=== PATIENT | male | born 2000 | race Caucasian/White ===

== ENCOUNTER 2021-03-06 06:26 | Inpatient (IN) | payer OTHER ==
[~2021-03-06] VITALS: Ht 190.5 cm; Wt 81.6 kg
[2021-03-06] VITALS (7 sets, daily range): BP systolic 105–135; BP diastolic 51–66
[2021-03-06 07:28] LABS: HEMOGLOBIN 15.5 gm/dL (14.0-18.0); MCH 30.4 pg (26.0-34.0); MCHC 34.4 g/dL (28.0-37.0); MCV 88.5 fL (80.0-100.0); PLATELET COUNT 215 thou/uL (150-400); RBC 5.08 mil/uL (4.50-6.00); RDW 12.3 % (10.5-14.5)
[2021-03-06 07:37] LABS: CALCIUM 9.4 mg/dL (8.5-10.1); POTASSIUM 3.3 mmol/L (3.5-5.1)
[2021-03-06 07:43] LABS: ALBUMIN 4.3 g/dL (3.4-5.0); DIRECT BILIRUBIN 0.3 mg/dL (<0.1-0.2); TOTAL BILIRUBIN 2.1 mg/dL (0.2-1.0); TOTAL PROTEIN 7.5 g/dL (6.4-8.2)
[2021-03-06 09:55] LABS: ABSOLUTE NEUTROPHILS 17.2 thou/uL (1.4-8.2); PLATELET ESTIMATE NORMAL
--- NOTE | 2021-03-06 19:12 | NUR ---
PT UP FROM SX. PT A&OX4. STATES HE FEELS A LOT BETTER THAN PRIOR TO SURGERY. PT 3 LAP SITES WITH DERMABOND AND STERI STRIPS ARE INTACT WITTH DRIED DRAINAGE. IV ABT GIVEN ORDERED. PT TOLERATED REGULAR DIET AND VOIDING PER TOILET. UP WITH SBA.
--- NOTE | 2021-03-07 06:03 | NUR ---
Pt. rested quietly during the night when checked on during frequent rounds. He c/o abdominal pain and po pain med given (see emar) with some relief noted. NO c/o nausea or vomiting. Lapsites to abdomen are dry and intact.
[2021-03-07 07:48] VITALS: BP 106/59
[2021-03-07 12:51] VITALS: BP 106/59
--- NOTE | 2021-03-07 13:22 | NUR ---
PT ALERT AND ORIENTED TIMES FOUR. VSS. PT DENIES PAIN/SOA AT THIS TIME. PT TOLERATES MEALS. PLANS FOR DISCHARGE TODAY. WILL CONTINUE TO MONITOR.
[2021-03-07] MEDS ORDERED: NORCO5 PO (14:51)
--- NOTE | 2021-03-07 16:06 | PATH ---
[facility] [place] [address] [address] PATHOLOGY RPT PROCEDURE Name: SOLISJACLYN Room #: 459-P DIS IN M.R.#: [id number] Admission: 03/06/21 Date of : 00 Discharge: 03/07/21 Report #: [id number] Path Case #: [id number] [facility] Accession Number: [id number] . 01 Material submitted: . appendix - APPENDIX . 01 Clinical history: . ACUTE APPENDICITIS . 02 Diagnosis: Appendix, appendectomy: - Acute appendicitis with serositis. (ANK/db; 03/07/2021) LBQ 03/07/2021 1011 Local . 02 Electronically signed: . Lesli Fontenot MD, Pathologist NPI- [id number] . 01 Gross description: . Fixative: Formalin Labeled: Appendix Appendix length: 8.7 cm Appendix diameter: Up to 0.8 cm Mesoappendix: Up to 1.1 cm Proximal margin: Stapled Serosa: Light barney-pink and roughened Cut surface: Dilated lumen Luminal diameter: Up to 0.9 cm Perforation: None identified Lesions/abnormalities: None identified A1 Proximal margin (inked black) and distal tip, bisected A2 Mid appendix ([facility]; 03/06/2021) [facility] 03/06/2021 1540 Local . 02 Pathologist provided ICD-10: K35.80 . 02 CPT . 585978 Specimen Comment: A courtesy copy of this report has been sent to [phone] Specimen Comment: Report sent to Performed at: [address], [place] [id number] MD Pop Finch MD Phone: [phone] [facility] [address] [place] [address] PATHOLOGY RPT PROCEDURE Name: JACLYN SOLIS Room #: 459-P DIS IN M.R.#: [id number] Admission: 03/06/21 Date of : 00 Discharge: 03/07/21 Report #: [id number] Path Case #: [id number] Performed at: [facility] [address] [place], [place] [id number] MD Kari Posada MD Phone: [phone]
--- NOTE | 2021-03-08 09:57 | O ---
[facility] [place] [address] [place] [address] OPERATIVE REPORT Name: JACLYN SOLIS Room #: 459-P [facility] IN M.R.#: [id number] Admission: 03/06/21 Attend Phys: Juan Chowdhury, Discharge: 03/07/21 Date of : 00 Report #: [id number] THIS REPORT FOR: cc: FAM - No family physician/PCP FAM - No family physician/PCP Juan Chowdhury MD ~ DATE OF SERVICE: 03/06/2021 PREOPERATIVE DIAGNOSIS: Acute appendicitis. POSTOPERATIVE DIAGNOSIS: Acute appendicitis. OPERATION: Laparoscopic appendectomy. SURGEON: Juan Chowdhury MD ANESTHESIA: General. ESTIMATED BLOOD LOSS: Minimal. SPECIMENS: Appendix. DESCRIPTION OF PROCEDURE: After informed consent was obtained, the patient was brought to the operating room and placed supine. SCDs were placed and working, preoperative antibiotics were administered, general anesthesia was induced. The abdomen was prepped and draped in the usual sterile fashion. A 10 mm incision was made below the umbilicus. Fascia was incised and a trocar was placed. Pneumoperitoneum was established. Right upper quadrant and left lower quadrant 5 mm trocars were placed. The appendix was visualized. The base of the appendix was identified. The mesoappendix was ligated with a TRACEY sánchez load stapler. There was good hemostasis. The base of the appendix was then stapled off with a TRACEY blue load stapler. Appendix was then placed into an Endopouch and removed. The fascia was then closed with a [id number] 0 Vicryl. Skin was closed with 4-0 Monocryl. Incisions were dressed with Steri-Strips. COMPLICATIONS: None. DISPOSITION: The patient was taken to recovery in satisfactory condition. <ELECTRONICALLY SIGNED> By: Juan Chowdhury MD 03/08/21 0957 [id number] [id number] Juan Chowdhury MD /nt
== END 2021-03-07 12:56 | disposition home health service (06) | DRG 343 ==
LOC: ER 06:26 → 4W 08:28 → TBA 08:30 → 4W 12:14
PROVIDERS: Student in an Organized Health Care Education/Training Program; ADMIT Surgery; ATTEND Surgery
PROC: 0DTJ4ZZ Resection of Appendix, Percutaneous Endoscopic Approach (ICD-10-PCS; principal; 2021-03-06)
DX: K35.890 Other acute appendicitis without perforation or gangrene (principal); Z20.822 Contact with and (suspected) exposure to COVID-19
CPT/HCPCS: 10040; 50010; 50101; 50411; 50555; 50739; 50740; 52265; 52266; 53307; 53312; 53314; 56525; 56526; 58574; 58867; 62110; 62900; 70005